=== PATIENT | male | born 1995 | race Caucasian/White ===

== ENCOUNTER → 2022-10-15 | Outpatient (CLI) | payer BC | LOC: M PLALAB 12:39 | PROVIDERS: ATTEND Advanced Practice Midwife | DX: Z31.440 Encounter of male for testing for genetic disease carrier status for procreative management (principal) ==

== ENCOUNTER 2024-11-27 22:11 | Emergency (ER) | payer BC ==
[~2024-11-27] VITALS: Ht 177.8 cm; Wt 72.7 kg
[2024-11-27] MEDS ORDERED: CETI10CA2 PO (22:26)
[2024-11-27] MEDS ORDERED: SERT50TA29 (22:26)
[2024-11-27] MEDS ORDERED: OMEP-173 (22:26)
[2024-11-27] MEDS ORDERED: METH18TA7 (22:26)
[2024-11-27 22:52] LABS: BASO # 0.1 10^3/uL (0.0-0.2); BASO % 0.3 % (0.0-1.0); EOS # 0.1 10^3/uL (0.0-0.5); EOS % 0.5 % (0.0-3.0); HEMATOCRIT 43.5 % (42.0-52.0); HEMOGLOBIN 15.4 g/dl (13.5-17.5); LYMPH # 0.3 10^3/uL (1.5-5.0); LYMPH % 1.7 % (24.0-44.0); MEAN CORPUSCULAR HEMOGLOBIN 31.4 pg (27.0-33.0); MEAN CORPUSCULAR HGB CONC 35.4 g/dl (32.0-36.5); MEAN CORPUSCULAR VOLUME 88.6 fl (80.0-96.0); MONO # 1.6 10^3/uL (0.0-0.8); MONO % 9.4 % (2.0-8.0); NEUTROPHILS # 14.5 10^3/uL (1.5-8.5); NEUTROPHILS % 87.7 % (36.0-66.0); PLATELET COUNT, AUTOMATED 289 10^3/uL (150-450); RED BLOOD COUNT 4.91 10^6/uL (4.30-6.10); WHITE BLOOD COUNT 16.5 10^3/uL (4.0-10.0)
[2024-11-27] MEDS: PROMETHAZINE 25MG/ML 1ML VIAL IV ONE (22:55)
[2024-11-27] MEDS: LR 1,000 ML IV ONE (22:57)
[2024-11-27 23:08] LABS: LIPASE 23 U/L (12-53)
[2024-11-27 23:10] LABS: ALBUMIN 4.3 G/DL (3.2-5.2); ALKALINE PHOSPHATASE 74 U/L (40-129); ALT/SGPT 14 U/L (7.0-40); AST/SGOT 14 U/L (<34); BILIRUBIN,DIRECT 0.4 MG/DL (<0.4); BILIRUBIN,TOTAL 1.4 MG/DL (0.3-1.2); BLOOD UREA NITROGEN 22 MG/DL (9-23); CALCIUM LEVEL 9.4 MG/DL (8.5-10.1); CARBON DIOXIDE LEVEL 20 MMOL/L (20-31); CHLORIDE LEVEL 105 MMOL/L (98-107); CREATININE FOR GFR 0.79 MG/DL (0.70-1.30); GLOMERULAR FILTRATION RATE > 60.0 (>60); GLUCOSE, FASTING 195 MG/DL (60-100); POTASSIUM SERUM 4.7 MMOL/L (3.5-5.1); SODIUM LEVEL 140 MMOL/L (136-145); TOTAL PROTEIN 7.6 G/DL (5.7-8.2)
[2024-11-28] MEDS ORDERED: ISOVUE-370 76% 100ML VIAL As Ordered ONE (00:34)
[2024-11-28] MEDS ORDERED: ONDA-282 PO (01:46)
[2024-11-28] MEDS ORDERED: AZIT-12 PO (01:46)
[2024-11-28 01:58] VITALS: BP 113/78; TEMP 98.4; O2SAT 98
== END 2024-11-28 02:07 | disposition home or self-care (01) ==
LOC: EDBD 22:11 → M ED 22:11
DX: A09 Infectious gastroenteritis and colitis, unspecified (principal); K51.919 Ulcerative colitis, unspecified with unspecified complications; K21.9 Gastro-esophageal reflux disease without esophagitis; F90.9 Attention-deficit hyperactivity disorder, unspecified type; F41.9 Anxiety disorder, unspecified; F10.10 Alcohol abuse, uncomplicated; Z91.048 Other nonmedicinal substance allergy status; Z79.2 Long term (current) use of antibiotics; Z79.83 Long term (current) use of bisphosphonates; Z79.899 Other long term (current) drug therapy
CPT/HCPCS: 74177; 80048; 80076; 83690; 85025; 87486; 87581; 87633; 87798; 96365; 96366; 96375; 99284; J2550; Q9967